=== PATIENT | female | born 1970 | race African-American/Black ===

== ENCOUNTER 2017-07-12 12:42 | Emergency (ER) | payer BC ==
[~2017-07-12] VITALS: Ht 170.2 cm; Wt 65.9 kg
[~2017-07-12 12:42] MED LIST: BACL10TA PO; MMW SS; PENI500T PO; PRED20 PO; TYLE3 PO; Z.0.NO CURRENT MEDS
[2017-07-12 12:43] VITALS: BP 182/92; PULSE 80; RESP 18; TEMP 98.5; O2SAT 100
--- NOTE | 2017-07-12 14:15 | RADRPT ---
EXAM DATE/TIME: 07/12/2017 13:36 [facility] COMPARISON: No previous studies available for comparison. INDICATIONS : Right arm pain. MEDICAL HISTORY : Right arm pain. SURGICAL HISTORY : Tonsillectomy. section. ENCOUNTER: Initial ACUITY: 1 day PAIN SCORE: 5/10 LOCATION: Right arm. FINDINGS: There is spontaneous flow documented in the brachial, basilic, cephalic, axillary, and subclavian vei ns. The vessels are compressible and augmentation response is documented. No filling defects are se en. The flow is phasic with respiration. Direction of flow in the jugular vein is caudal. CONCLUSION: No evidence of deep venous thrombosis within the right upper extremity. Tenzin Wiggins MD on July 12, 2017 at 14:12 Board Certified Radiologist. This report was verified electronically.
--- NOTE | 2017-07-12 14:24 | PD ---
Physical Exam Date Seen by Provider: Jul 12, 2017 Narrative Patient presents complaining with pain and numbness in her right lower arm Data Data Last Documented VS Vital Signs Date Time Temp Pulse Resp B/P (MAP) Pulse Ox O2 Delivery O2 Flow Rate FiO2 07/12/17 12:43 98.5 80 18 182/92 (122) 100 Room Air Orders Orders Us Arm Venous Doppler (07/12/17 13:16) MDM Supervised Visit with KENDY: Yes Narrative Course I, Dr. Valdez, have reviewed the advance practice practitioner's documentation and am in agreement, met with the patient face to face, made the diagnosis, and the medical decision making was done by me. *My assessment and Findings: Patient is awake and alert and in no acute distress. She has normal capillary refill and sensation in her right forearm and hand. Please see Taco Le PA-C's note for results of laboratory and radiographic evaluation, ED course, final diagnosis and disposition Scripts No Active Prescriptions or Reported Meds Aurora Valdez MD Jul 12, 2017 14:24
--- NOTE | 2017-07-12 14:35 | PD ---
HPI Chief Complaint: Numbness/Tingling Time Seen by Provider: 13:07 Travel History International Travel<30 days: No Contact w/Intl Traveler<30days: No Traveled to known affect area: No History of Present Illness HPI 46-year-old Afro-[place] female presents the emergency department with sudden onset right sided forearm and lateral hand numbness and tingling and pain upon awakening this morning. 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 Patient denies previous history of this in the past. Patient states the pain is localized to the proximal dorsal forearm. It is improved with warmth. Patient denies weakness. She denies neck pain or other symptoms proximally to the elbow. Patient denies any other symptoms. She is allergic to ibuprofen and Naprosyn. [facility] Past Medical History Medical History: Denies Significant Hx ?: Not : 1 Para: 1 Past Surgical History Section: Yes Tonsillectomy: Yes Social History Alcohol Use: Yes (OCCASIONAL) Tobacco Use: Yes Substance Use: No Allergies-Medications (Allergen,Severity, Reaction): Coded Allergies: ibuprofen (Unverified Allergy, Mild, HIVES, 02/21/17) naproxen (Verified Allergy, Unknown, 07/12/17) Reported Meds & Prescriptions Reported Meds & Active Scripts Active No Active Prescriptions or Reported Medications Review of Systems Except as stated in HPI: all other systems reviewed are Neg General / Constitutional: No: Fever Eyes: No: Visual changes HENT: No: Headaches Cardiovascular: No: Chest Pain or Discomfort Respiratory: No: Shortness of Breath Gastrointestinal: No: Abdominal Pain Genitourinary: No: Dysuria Musculoskeletal: Positive: Pain Skin: No Rash Neurologic: Positive: Paresthesia, No: Weakness Psychiatric: No: Depression Endocrine: No: Polydipsia Hematologic/Lymphatic: No: Easy Bruising Physical Exam Narrative GENERAL: Patient appears in no acute distress. SKIN: Warm and dry. Normal color. Normal turgor. No rash. HEAD: Atraumatic. Normocephalic. EYES: Pupils equal and round. No scleral icterus. No injection or drainage. ENT: No nasal bleeding or discharge. Mucous membranes pink and moist. NECK: Trachea midline. No bony tenderness or step-off. Range of motion is full and nontender. CARDIOVASCULAR: Regular rate and rhythm. RESPIRATORY: No accessory muscle use. Clear to auscultation. Breath sounds equal bilaterally. MUSCULOSKELETAL: Extremities without clubbing, cyanosis, or edema. No obvious deformities. Patient is tenderness along the dorsal proximal forearm without swelling. She also has positive Tinel's at the ulnar notch of the elbow. She has no Tinel's at the wrist. 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 Supination and pronation of the forearm does not worsen her symptoms. There is no perceptible swelling of the right arm. NEUROLOGICAL: Awake and alert. No obvious cranial nerve deficits. Motor grossly within normal limits. Five out of 5 muscle strength in the arms and legs. Normal speech. PSYCHIATRIC: Appropriate mood and affect; insight and judgment normal. Data Data Last Documented VS Vital Signs Date Time Temp Pulse Resp B/P (MAP) Pulse Ox O2 Delivery O2 Flow Rate FiO2 07/12/17 12:43 98.5 80 18 182/92 (122) 100 Room Air Orders Orders Us Arm Venous Doppler (07/12/17 13:16) [facility] Medical Decision Making Medical Screen Exam Complete: Yes Emergency Medical Condition: Yes Differential Diagnosis Ulnar neuritis. Tendinitis. Possible DVT. Narrative Course Ultrasound of the right arm is ordered. Ultrasound shows no evidence of DVT. Patient will be treated with prednisone 20 mg daily for the next 5 days. Patient can take Tylenol as well as needed for pain. Recommend heat followed by ice and follow up if symptoms do not improve as needed. Diagnosis Primary Impression: Neuritis of right ulnar nerve Referrals: Primary Care Physician Patient Instructions: Cubital Tunnel Syndrome (ED), General Instructions Additional Instructions: Ultrasound shows no evidence of DVT. Patient will be treated with prednisone 20 mg daily for the next 5 days. Patient can take Tylenol as well as needed for pain. Recommend heat followed by ice and follow up if symptoms do not improve as needed. Med/Other Pt SpecificInfo: Prescription(s) given Scripts No Active Prescriptions or Reported Meds Disposition: 01 DISCHARGE HOME Condition: Stable Marck Le Jul 12, 2017 14:35
[2017-07-12] MEDS ORDERED: MAPA500T13 PO (14:37)
[2017-07-12] MEDS ORDERED: PRED20 PO (14:37)
[2017-07-12] MEDS ORDERED: DEXA4TAB PO (15:15)
== END 2017-07-12 15:21 | disposition home or self-care (01) ==
LOC: NEPD 12:42
DX: G56.21 Lesion of ulnar nerve, right upper limb (principal); Z72.0 Tobacco use
CPT/HCPCS: 93971; 99284

== ENCOUNTER 2017-10-01 07:17 | Inpatient (IN) | payer BC ==
[~2017-10-01] VITALS: Ht 170.2 cm; Wt 66.0 kg
[2017-10-01] VITALS (8 sets, daily range): BP systolic 127–166; BP diastolic 67–91; PULSE 58–98; RESP 16–18; TEMP 97.8–98.2; O2SAT 98–100
[~2017-10-01 07:17] MED LIST changes: -BACL10TA PO; +DEXA4TAB PO; +MAPA500T13 PO; -MMW SS; -PENI500T PO; -PRED20 PO; -TYLE3 PO; -Z.0.NO CURRENT MEDS
[2017-10-01] MEDS ORDERED: IOHEXOL 350 MG/ML 10 ML VIAL (for RAD DIAG) IVCONTRAST ONE (07:18)
[2017-10-01] MEDS ORDERED: SODIUM CHLOR 0.9% 1000 ML INJ 1,000 ML IV ONE (07:40)
--- NOTE | 2017-10-01 07:48 | PD ---
HPI Chief Complaint: Numbness/Tingling Time Seen by Provider: 07:40 Travel History International Travel<30 days: No Contact w/Intl Traveler<30days: No Traveled to known affect area: No History of Present Illness HPI 47-year-old female patient presents to the ER today, states that she was watching TV after getting back from the store at 6:30 AM when she felt her right arm go numb, felt like she could use her right arm at all, felt was very weak. She states that the symptoms are now subsiding but she still has right arm weakness. She denies any headaches, trouble walking, trouble talking, or any other symptoms. She denies any vision changes, chest pains, shortness of breath. Stroke alert was called. Case was discussed with neurologist Dr. Peguero , and CAT scans were ordered. Modifying Factors: None Associated Signs & Symptoms: Right arm weakness and numbness, stroke alert Risk Factors: None PFSH Past Medical History ?: Not : 1 Para: 1 Past Surgical History Section: Yes Tonsillectomy: Yes Social History Alcohol Use: Yes (OCCASIONAL) Tobacco Use: Yes Substance Use: No Allergies-Medications (Allergen,Severity, Reaction): Coded Allergies: ibuprofen (Verified Allergy, Intermediate, HIVES, 10/01/17) naproxen (Verified Allergy, Unknown, HIVES, 10/01/17) Reported Meds & Prescriptions Reported Meds & Active Scripts Active Review of Systems Except as stated in HPI: all other systems reviewed are Neg Physical Exam Narrative GENERAL: Well-developed middle-aged -[place] female patient currently and mild distress. Awake and oriented 3. SKIN: Focused skin assessment warm/dry. HEAD: Atraumatic. Normocephalic. EYES: Pupils equal and round. No scleral icterus. No injection or drainage. ENT: No nasal bleeding or discharge. Mucous membranes pink and moist. NECK: Trachea midline. No JVD. Supple. CARDIOVASCULAR: Regular rate and rhythm. No murmur appreciated. RESPIRATORY: No accessory muscle use. Clear to auscultation. Breath sounds equal bilaterally. GASTROINTESTINAL: Abdomen soft, non-tender, nondistended. Hepatic and splenic margins not palpable. MUSCULOSKELETAL: No obvious deformities. No clubbing. No cyanosis. No edema. NEUROLOGICAL: Awake and alert. No obvious cranial nerve deficits. Right arm numbness, paresthesias, and weakness, 4/6. Normal speech. Right pronator drift. PSYCHIATRIC: Appropriate mood and affect; insight and judgment normal. Data Data Last Documented VS Vital Signs Date Time Temp Pulse Resp B/P (MAP) Pulse Ox O2 Delivery O2 Flow Rate FiO2 10/01/17 08:18 98 Nasal Cannula 2.00 10/01/17 07:36 99 17 10/01/17 07:35 97.8 127/79 (95) Orders Orders Diet Npo (10/01/17 Breakfast) Activity Bed Rest (10/01/17 ) Electrocardiogram (10/01/17 ) I-Stat Profile (10/01/17 07:40) Prothrombin Time / Inr (Pt) (10/01/17 07:40) Act Partial Throm Time (Ptt) (10/01/17 07:40) Complete Blood Count With Diff (10/01/17 07:40) Fibrinogen (10/01/17 07:40) Creatine Kinase (Cpk) (10/01/17 07:40) Troponin I (10/01/17 07:40) Ua Includes Microscopic (10/01/17 07:40) Drug Screen, Random Urine (10/01/17 07:40) Type And Screen (10/01/17 07:40) Ct Brain W/O Iv Contrast(Rout) (10/01/17 ) Chest, Single Ap (10/01/17 ) Cta Brain W Iv Contrast W 3d (10/01/17 07:40) Cta Neck W Iv Contrast W 3d (10/01/17 07:40) Beta Hcg (Quant/Titer) (10/01/17 07:40) Consult Neurology (10/01/17 ) Blood Glucose (10/01/17 07:40) Ecg Monitoring (10/01/17 07:40) Neuro Checks Q2HX12,Q4H (10/01/17 07:40) Nursing Bedside Swallow Assess .ONCE (10/01/17 07:40) Iv Access Insert/Monitor (10/01/17 07:40) NPO (10/01/17 07:40) Oximetry (10/01/17 07:40) Resp Oxygen Nc Stroke (10/01/17 ) Sodium Chlor 0.9% 1000 Ml Inj (Ns 1000 M (10/01/17 07:40) Cath For Specimen (10/01/17 07:40) (Hub Use Only)Inp Phy Cons/Ref (10/01/17 ) Aspirin (Aspirin) (10/01/17 08:45) Iohexol 350 Inj (Omnipaque 350 Inj) (10/01/17 07:18) Admit Order (Ed Use Only) (10/01/17 08:55) Labs Laboratory Tests Test 10/01/17 07:50 White Blood Count 8.6 TH/MM3 Red Blood Count 4.68 MIL/MM3 Hemoglobin 10.6 GM/DL Bedside Hemoglobin 12.6 G/DL Hematocrit 34.2 % Bedside Hematocrit 37.0 % Mean Corpuscular Volume 73.1 FL Mean Corpuscular Hemoglobin 22.6 PG Mean Corpuscular Hemoglobin Concent 31.0 % Red Cell Distribution Width 18.2 % Platelet Count 436 TH/MM3 Mean Platelet Volume 8.1 FL Neutrophils (%) (Auto) 52.1 % Lymphocytes (%) (Auto) 33.1 % Monocytes (%) (Auto) 13.0 % Eosinophils (%) (Auto) 1.0 % Basophils (%) (Auto) 0.8 % Neutrophils # (Auto) 4.5 TH/MM3 Lymphocytes # (Auto) 2.8 TH/MM3 Monocytes # (Auto) 1.1 TH/MM3 Eosinophils # (Auto) 0.1 TH/MM3 Basophils # (Auto) 0.1 TH/MM3 CBC Comment DIFF FINAL Differential Comment Prothrombin Time 9.3 SEC Prothromb Time International Ratio 0.9 RATIO Activated Partial Thromboplast Time 19.4 SEC Fibrinogen 403 mg/dL Bedside Sodium 138 MMOL/L Bedside Potassium 3.9 MMOL/L Bedside Chloride 106 MMOL/L Bedside Blood Urea Nitrogen 8 MG/DL Bedside Creatinine 0.8 MG/DL Bedside Glucose 102 MG/DL Total Creatine Kinase 108 U/L Troponin I LESS THAN 0.02 NG/ML Human Chorionic Gonadotropin, Quant LESS THAN 1 MIU/ML MDM Medical Screen Exam Complete: Yes Emergency Medical Condition: Yes Medical Record Reviewed: Yes EKG Prior to Arrival: Yes Differential Diagnosis Acute CVA versus radiculopathy versus neuropathy versus ICH Narrative Course CT and CTA was unremarkable. Patient came back from CT and most the symptoms are resolving. Case had been discussed with neurologist, Dr. Peguero, who agrees that at this point risk would be higher of giving TPA versus symptoms and agrees with giving aspirin. Planning to admit for further observation. Case was discussed with Dr. Alexis for admission. Stroke Alert NIHSS NIH Stroke Scale Result: 1 NIHSS Time Completed: 07:40 Thrombolytic Contraindications Contraindications Comment: TPA deferred secondary to rapidly improving symptoms. Diagnosis Diagnosis: Primary Impression: CVA (cerebral vascular accident) Admitting Physician Requests: Admit SoonMulu marshall MD Oct 01, 2017 07:48
[2017-10-01 08:05] LABS: AUTOMATED NEUTROPHIL # 4.5 TH/MM3 (1.8-7.7); BASOPHIL # 0.1 TH/MM3 (0-0.2); BASOPHIL % 0.8 % (0.0-2.0); EOSINOPHIL # 0.1 TH/MM3 (0-0.4); HEMATOCRIT 34.2 % (35.0-46.0); HEMOGLOBIN 10.6 GM/DL (11.6-15.3); LYMPH % 33.1 % (9.0-44.0); LYMPHOCYTE # 2.8 TH/MM3 (1.0-4.8); MEAN CELL VOLUME 73.1 FL (80.0-100.0); MEAN CORPUSCULAR HEMOGLOBIN 22.6 PG (27.0-34.0); MEAN PLATELET VOLUME 8.1 FL (7.0-11.0); MONOCYTE # 1.1 TH/MM3 (0-0.9); NEUT % 52.1 % (16.0-70.0); PLATELET COUNT 436 TH/MM3 (150-450); RED BLOOD COUNT 4.68 MIL/MM3 (4.00-5.30); RED CELL DISTRIBUTION WIDTH 18.2 % (11.6-17.2); WHITE BLOOD COUNT 8.6 TH/MM3 (4.0-11.0)
--- NOTE | 2017-10-01 08:09 | RADRPT ---
EXAM DATE/TIME: 10/01/2017 07:57 [facility] COMPARISON: No previous studies available for comparison. INDICATIONS : Stroke alert, Right sided weakness. RADIATION DOSE: 56.35 CTDIvol (mGy) This report was called by Dr. Wiggins to Dr. Hudson at ok 8: 08 AM on 10/01/17. MEDICAL HISTORY : Non-responsive. SURGICAL HISTORY : Non-responsive. ENCOUNTER: Initial ACUITY: 1 day PAIN SCALE: Non-responsive LOCATION: Bilateral head TECHNIQUE: Multiple contiguous axial images were obtained of the head. Using automated exposure control and adj ustment of the mA and/or kV according to patient size, radiation dose was kept as low as reasonably a chievable to obtain optimal diagnostic quality images. DICOM format image data is available electro nically for review and comparison. FINDINGS: CEREBRUM: The ventricles are normal for age. No evidence of midline shift, mass lesion, hemorrhage or acute in farction. No extra-axial fluid collections are seen. POSTERIOR FOSSA: The cerebellum and brainstem are intact. The 4th ventricle is midline. The cerebellopontine angle i s unremarkable. EXTRACRANIAL: The visualized portion of the orbits is intact. SKULL: The calvaria is intact. No evidence of skull fracture. CONCLUSION: No acute disease. Tenzin Wiggins MD on October 01, 2017 at 8:03 Board Certified Radiologist. This report was verified electronically.
[2017-10-01 08:19] LABS: INTERNATIONAL NORMALIZED RATIO 0.9 RATIO; PROTHROMBIN TIME - PATIENT 9.3 SEC (9.8-11.6)
[2017-10-01 08:23] LABS: TROPONIN I LESS THAN 0.02 NG/ML (0.02-0.05)
--- NOTE | 2017-10-01 08:39 | RADRPT ---
EXAM DATE/TIME: 10/01/2017 08:14 [facility] COMPARISON: CT BRAIN W/O CONTRAST, October 01, 2017, 7:57. INDICATIONS : Stroke alert, altered mental status. IV CONTRAST: 85 cc Omnipaque 350 (iohexol) IV ; Cumulative dose for multiple exams. RADIATION DOSE: 9.96 CTDIvol (mGy) ; Combined studies MEDICAL HISTORY : Non-responsive. SURGICAL HISTORY : Non-responsive. ENCOUNTER: Initial ACUITY: 1 day PAIN SCALE: Non-responsive LOCATION: Bilateral head TECHNIQUE: Volumetric scanning was performed using a multi-row detector CT scanner. The data was post processed with a variety of visualization algorithms including full volume maximum intensity projection, multi -planar sliding thin slab reformation, curved planar reformation, and surface rendering techniques. Using automated exposure control and adjustment of the mA and/or kV according to patient size, radiat ion dose was kept as low as reasonably achievable to obtain optimal diagnostic quality images. DICO M format image data is available electronically for review and comparison. FINDINGS: There is excellent visualization of the major intracranial arteries out to the second-order branch ve ssels. There is no evidence for aneurysm, vessel truncation or stenosis, and no evidence for vascula r malformation. CONCLUSION: No acute disease. Tenzin Wiggins MD on October 01, 2017 at 8:34 Board Certified Radiologist. This report was verified electronically.
--- NOTE | 2017-10-01 08:40 | RADRPT ---
EXAM DATE/TIME: 10/01/2017 09:28 [facility] COMPARISON: No previous studies available for comparison. INDICATIONS : Stroke Alert MEDICAL HISTORY : None. SURGICAL HISTORY : None. ENCOUNTER: Initial ACUITY: 1 day PAIN SCORE: 0/10 LOCATION: chest FINDINGS: A single view of the chest demonstrates the lungs to be symmetrically aerated without evidence of mas s, infiltrate or effusion. The cardiomediastinal contours are unremarkable. Osseous structures are intact. CONCLUSION: No acute disease. Tenzin Wiggins MD on October 01, 2017 at 8:37 Board Certified Radiologist. This report was verified electronically.
[2017-10-01] MEDS ORDERED: ASPIRIN 325 MG TAB PO ONE (08:45)
--- NOTE | 2017-10-01 08:47 | RADRPT ---
EXAM DATE/TIME: 10/01/2017 08:14 [facility] COMPARISON: No previous studies available for comparison. INDICATIONS : Stroke alert, right sided weakness. IV CONTRAST: 85 cc Omnipaque 350 (iohexol) IV ; Cumulative dose for multiple exams. RADIATION DOSE: 9.96 CTDIvol (mGy) ; Combined studies MEDICAL HISTORY : Non-responsive. SURGICAL HISTORY : Non-responsive. ENCOUNTER: Initial ACUITY: 1 day PAIN SCALE: Non-responsive LOCATION: Bilateral neck Elevated flow velocities and ICA/CCA ratios have been found to correlate with increased degrees of vessel stenosis, calculated as percentage of diameter relative to a normal segment of distal ICA/CCA. TECHNIQUE: Volumetric scanning was performed using a multirow detector CT scanner. The data was post processed with a variety of visualization algorithms including full-volume maximum intensity projection, multip lanar sliding thin-slab reformation, curved-planar reformation, and surface-rendering techniques. Us ing automated exposure control and adjustment of the mA and/or kV according to patient size, radiatio n dose was kept as low as reasonably achievable to obtain optimal diagnostic quality images. DICOM f ormat image data is available electronically for review and comparison. FINDINGS: AORTIC ARCH: There is a three-vessel origin of the great vessels from the aorta. No evidence of ostial narrowing. RIGHT CAROTID: The common carotid artery is intact. The carotid bulb has a normal configuration without ulceration o r narrowing. The internal carotid artery lumen is smooth without stenosis. The external carotid mela ry is intact. LEFT CAROTID: The common carotid artery is intact. The carotid bulb has a normal configuration without ulceration or narrowing. The internal carotid artery lumen is smooth without stenosis. The external carotid ar radha is intact. VERTEBRALS: The vertebral arteries have a symmetric diameter. No stenotic lesions are seen. CONCLUSION: No acute disease. Tenzin Wiggins MD on October 01, 2017 at 8:43 Board Certified Radiologist. This report was verified electronically.
[2017-10-01] MEDS ORDERED: SODIUM CHLORIDE 0.9% FLUSH 10 ML FLUSH IV FLUSH PRN (09:00)
[2017-10-01] MEDS ORDERED: DEXTROSE 50% IN WATER 50 ML VIAL(D50) IV PUSH PRN (09:00)
[2017-10-01] MEDS: SODIUM CHLORIDE 0.9% FLUSH 10 ML FLUSH IV FLUSH SCH ×2 (09:00→21:22)
[2017-10-01] MEDS ORDERED: ASPIRIN 81 MG CHEW TAB PO SCH (09:00)
[2017-10-01] MEDS ORDERED: GLUCAGON 1 MG/ML VIAL OTHER PRN (09:00)
[2017-10-01] MEDS ORDERED: LORazepam 2 MG/ML VIAL IV PUSH ONE (09:30)
[2017-10-01 09:49] LABS: BILIRUBIN, URINE NEG (NEG); BLOOD, URINE NEG (NEG); GLUCOSE,URINE NEG (NEG); KETONE, URINE NEG (NEG); NITRITE,URINE NEG (NEG); PH, URINE 7.5 (5.0-8.5); SQUAMOUS EPITHELIAL CELL URINE 1 /hpf (0-5); URINE COLOR LIGHT-YELLOW (YELLW/STRAW); URINE LEUKOCYTE ESTERASE NEG (NEG)
--- NOTE | 2017-10-01 10:05 | RADRPT ---
EXAM DATE/TIME: 10/01/2017 09:31 [facility] COMPARISON: No previous studies available for comparison. INDICATIONS : Right upper extremity weakness. MEDICAL HISTORY : None. SURGICAL HISTORY : section. ENCOUNTER: Initial ACUITY: 1 day PAIN SCORE: 0/10 LOCATION: cranial Please note a normal MRA of the brain does not entirely exclude the possibility of a small aneurysm, nor the possibility of distal intracranial vessel disease. TECHNIQUE: 3D time of flight MRA was performed. Source images, multiplanar STS MIP, and 3D volume MIP reconstru ctions were reviewed. FINDINGS: There is excellent visualization of the major intracranial arteries out to the second-order branch ve ssels. There is no evidence for aneurysm, vessel truncation or stenosis, and no evidence for vascula r malformation. CONCLUSION: No acute disease. Tenzin Wiggins MD on October 01, 2017 at 10:01 Board Certified Radiologist. This report was verified electronically.
--- NOTE | 2017-10-01 10:30 | RADRPT ---
EXAM DATE/TIME: 10/01/2017 09:31 [facility] COMPARISON: CTA BRAIN W 3D RECON, October 01, 2017, 8:14. INDICATIONS : Right upper extremity weakness. MEDICAL HISTORY : None. SURGICAL HISTORY : section. ENCOUNTER: Initial ACUITY: 1 day PAIN SCORE: 0/10 LOCATION: cranial TECHNIQUE: Multiplanar, multisequence MRI of the brain was performed without contrast. FINDINGS: There are small focal hyperintensities within the left high parietal cortex and to a lesser extent th e right high parietal cortex on the diffusion weighted images suggesting tiny acute infarcts. The mahin tricles, sulci and cisterns are normal in size shape and position for the patient's age. No acute hem orrhage, midline shift or extra-axial fluid collections are noted. The midline structures are normal. CONCLUSION: 1. Small focal hyperintensities within the left high parietal cortex and to a lesser extent the right high parietal cortex on the diffusion-weighted images suggesting tiny acute infarcts. 2. No acute hemorrhage, midline shift or extra axial fluid collections. Tenzin Wiggins MD on October 01, 2017 at 10:24 Board Certified Radiologist. This report was verified electronically.
--- NOTE | 2017-10-01 11:15 | MB ---
cc: Lenny Peguero MD DATE: 10/01/2017 HISTORY OF PRESENT ILLNESS: This is a 47-year-old seen as a stroke alert today. She developed right arm symptoms about 6:30. I spoke to the ED physician on multiple occasions. She improved quickly and her studies were essentially negative and subsequently we ordered an MRI brain, which I just reviewed, and the study shows small areas of left parietal diffusion abnormality with another small area on the right as well. She has no medical history, no medications on a regular basis. She is a smoker and admits drinking alcohol. She was fine this morning when she had the symptoms. NEUROLOGIC EXAMINATION: Showing very minimal right upper extremity weakness with some pronation. There is some flattening on the right nasolabial fold, probably of no significance. Speech and language are normal. Good strength in the lower extremities. Reflexes 1-2+ throughout and plantar response is flexor. ASSESSMENT: Small areas of ischemia, left more than right parietal suggesting embolic phenomena. NIHSS is 1. Initially, we did not think she was a candidate for the TPA, but considering the MRI findings, I thought this was still a reasonable alternative since we were within the 4 and 1/2 hour span for TPA. The patient was offered and she promptly declined it as she feels she is fully or nearly fully recovered and she does not want to take any risks. We will give her IV fluids, maintain head of bed flat for the next 6 hours at least. We will order echocardiogram and also a hypercoagulable profile. Checking lipids. Aspirin was given and we will continue 325 daily. EKG was sinus rhythm. I should mention CT angio head and neck and MRA head were all normal. Thank you for asking us to assist in her care. I will follow her with you. Lenny Peguero MD OFC/TL , 10:49 AM , 11:14 AM
[2017-10-01] MEDS: INSULIN ASPART SUPPLEMENTAL SCALE SQ SCH ×3 (12:00→21:00)
[2017-10-01 14:01] LABS: ALBUMIN 3.2 GM/DL (3.4-5.0); ALT (GPT) 22 U/L (10-53); AST (GOT) 24 U/L (15-37); DIRECT BILIRUBIN ADULT LESS THAN 0.1 MG/DL (0.0-0.2)
[2017-10-01 14:02] LABS: ALKALINE PHOSPHATASE 89 U/L (45-117); TOTAL BILIRUBIN ADULT 0.1 MG/DL (0.2-1.0); TOTAL PROTEIN 7.9 GM/DL (6.4-8.2)
--- NOTE | 2017-10-01 16:40 | HHI.HP ---
[facility] No Primary Care Physician Admission Diagnosis Stroke alert Diagnoses: Chief Complaint: right arm numbness/weakness Travel History International Travel<30 Days: No Contact w/Intl Traveler <30 Da: No Traveled to Known Affected Are: No History of Present Illness Written by Alyson Amaya, acting as scribe for Dr. Alexis on 10/01/17 at 16:39. 47-year-old female with history of tobacco use, otherwise no significant past medical history, presents with acute onset of right arm numbness/weakness at 6: 30 AM this morning 10/01/17. The patient reports she has been in her usual state of health, denies any recent fever/chills, lightheadedness, dizziness, headache, chest pain, palpitations, shortness of breath, or abdominal complaints. She went to the store around 6 AM this morning for a pack of cigarettes, returned home, smoked a cigarette, and then started to notice significant numbness and weakness of the right arm. She states her arm then went completely limp. She immediately prompted a family member to take her to the hospital. Denies any visual changes, facial droop, slurred speech, lower extremity numbness/weakness, or any other complaints. Upon arrival to the ED, a stroke alert was called. Head CT was negative for stroke. Neurology was consulted and offered TPA, however patient declined because her symptoms were improving. The patient is now seen around 4 PM; she reports some soreness around her right upper arm otherwise no further numbness or weakness. Denies any other medical complaints at this time. No family history of stroke. She does not follow with a PCP. She does not check her blood pressure. She does not take any medications, including no aspirin. She did have an episode of right hand paresthesias in , presented to the ER, but was diagnosed with neuritis of right ulnar nerve, discharged home, and symptoms resolved. Review of Systems Except as stated in HPI: all other systems reviewed are Neg Past Family Social History Past Medical History No significant past medical history Past Surgical History 30years ago Reported Medications Denies taking any medications on a regular basis. Allergies: Coded Allergies: ibuprofen (Verified Allergy, Intermediate, HIVES, 10/01/17) naproxen (Verified Allergy, Unknown, HIVES, 10/01/17) Active Ordered Medications Current Medications Medications (Trade) Dose Ordered Sig/Weston Route Start Time Stop Time Status Last Admin Sodium Chloride 1,000 ml @ 70 mls/hr [id number] ONCE IV 10/01/17 07:40 10/01/17 21:57 10/01/17 08:06 (NS Flush) 2 ml BID IV FLUSH 10/01/17 09:00 (NS Flush) 2 ml UNSCH PRN IV FLUSH 10/01/17 09:00 (NovoLOG SUPPLEMENTAL SCALE) 1 ACHS SQ 10/01/17 12:00 (D50w (Vial) Inj) 50 ml UNSCH PRN IV PUSH 10/01/17 09:00 (Glucagon Inj) 1 mg UNSCH PRN OTHER 10/01/17 09:00 (Lipitor) 10 mg HS PO 10/01/17 21:00 (Ecotrin Ec) 325 mg DAILY PO 10/02/17 09:00 Family History Father with CAD s/p stents Mother with no significant history Both sides of the family with diabetes Social History Smokes tobacco, 1PPD [id number] Occasional social alcohol use Denies any illicit drug use Physical Exam Vital Signs Vital Signs Date Time Temp Pulse Resp B/P (MAP) Pulse Ox O2 Delivery O2 Flow Rate FiO2 10/01/17 15:03 98.2 64 18 149/90 (109) 98 10/01/17 15:01 10/01/17 14:11 72 17 158/91 (113) 100 Room Air 10/01/17 11:30 76 17 166/88 (114) 99 Room Air 10/01/17 08:18 98 Nasal Cannula 2.00 10/01/17 08:18 98 Nasal Cannula 2.00 10/01/17 07:45 98 2.00 10/01/17 07:45 98 Nasal Cannula 2.00 10/01/17 07:36 99 17 100 Room Air 10/01/17 07:35 97.8 98 16 127/79 (95) 100 Physical Exam GENERAL: Well-nourished, well-developed pleasant middle aged female patient in [facility]. SKIN: Warm and dry. No rash. HEAD: Normocephalic. Atraumatic. EYES: Pupils equal and round. No scleral icterus. No injection or drainage. ENT: No nasal bleeding or discharge. Mucous membranes pink and moist. NECK: Supple. Trachea midline. CARDIOVASCULAR: Regular rate and rhythm. S1, S2 noted. No murmur appreciated. RESPIRATORY: No accessory muscle use. Clear to auscultation. Breath sounds equal bilaterally. GASTROINTESTINAL: Abdomen soft, non-tender, nondistended. Normoactive bowel sounds x4. MUSCULOSKELETAL: No obvious deformities. Extremities without clubbing, cyanosis , or edema. NEUROLOGICAL: Awake and alert. No obvious cranial nerve deficits. 4.5/5 strength of RUE, 5/5 strength of LUE, 5/5 strength in BLE. Normal speech. Bilateral upper and lower extremity sensation equal and intact. No facial droop , lid lag, or tongue deviation. PSYCHIATRIC: Appropriate mood and affect; insight and judgment normal. Laboratory Laboratory Tests Test 10/01/17 07:50 10/01/17 08:00 10/01/17 09:00 White Blood Count 8.6 Red Blood Count 4.68 Hemoglobin 10.6 Bedside Hemoglobin 12.6 Hematocrit 34.2 Bedside Hematocrit 37.0 Mean Corpuscular Volume 73.1 Mean Corpuscular Hemoglobin 22.6 Mean Corpuscular Hemoglobin Concent 31.0 Red Cell Distribution Width 18.2 Platelet Count 436 Mean Platelet Volume 8.1 Neutrophils (%) (Auto) 52.1 Lymphocytes (%) (Auto) 33.1 Monocytes (%) (Auto) 13.0 Eosinophils (%) (Auto) 1.0 Basophils (%) (Auto) 0.8 Neutrophils # (Auto) 4.5 Lymphocytes # (Auto) 2.8 Monocytes # (Auto) 1.1 Eosinophils # (Auto) 0.1 Basophils # (Auto) 0.1 CBC Comment DIFF FINAL Differential Comment Prothrombin Time 9.3 Prothromb Time International Ratio 0.9 Activated Partial Thromboplast Time 19.4 Fibrinogen 403 Bedside Sodium 138 Bedside Potassium 3.9 Bedside Chloride 106 Bedside Blood Urea Nitrogen 8 Bedside Creatinine 0.8 Bedside Glucose 102 Total Bilirubin 0.1 Direct Bilirubin LESS THAN 0.1 Indirect Bilirubin 0.0 Aspartate Amino Transf (AST/SGOT) 24 Alanine Aminotransferase (ALT/SGPT) 22 Alkaline Phosphatase 89 Total Creatine Kinase 108 Troponin I LESS THAN 0.02 Total Protein 7.9 Albumin 3.2 Human Chorionic Gonadotropin, Quant LESS THAN 1 Urine Color LIGHT-YELLOW Urine Turbidity CLEAR Urine pH 7.5 Urine Specific Bonita 1.035 Urine Protein NEG Urine Glucose (UA) NEG Urine Ketones NEG Urine Occult Blood NEG Urine Nitrite NEG Urine Bilirubin NEG Urine Urobilinogen LESS THAN 2.0 Urine Leukocyte Esterase NEG Urine RBC LESS THAN 1 Urine WBC LESS THAN 1 Urine Squamous Epithelial Cells 1 Urine Opiates Screen NEG Urine Barbiturates Screen NEG Urine Amphetamines Screen NEG Urine Benzodiazepines Screen NEG Urine Cocaine Screen NEG Urine Cannabinoids Screen POS Result Diagram: 10/01/17 0750 Imaging 10/01/[address] unremarkable 10/01/17 head/neck CTA unremarkable 10/01/17 chest x-ray unremarkable 10/01/17 head MRA unremarkable 10/01/17 brain MRI shows small focal hyperintensities within the left high parietal cortex and to a lesser extent the right high parietal cortex on the diffusion-weighted images suggesting tiny acute infarcts; No acute hemorrhage, midline shift or extra axial fluid collections Caprini VTE Risk Assessment Caprini VTE Risk Assessment: Mod/High Risk (score >= 2) Caprini Risk Assessment Model Point Value = 1 Point Value = 2 Point Value = 3 Point Value = 5 Age 41-60 Minor surgery BMI > 25 kg/m2 Swollen legs Varicose veins or History of unexplained or recurrent spontaneous Oral contraceptives or hormone replacement Sepsis (< 1 month) Serious lung disease, including pneumonia (< 1 month) Abnormal pulmonary function Acute myocardial infarction Congestive heart failure (< 1 month) History of inflammatory bowel disease Medical patient at bed rest Age 61-74 Arthroscopic surgery Major open surgery (> 45 min) Laparoscopic surgery (> 45 min) Malignancy Confined to bed (> 72 hours) Immobilizing plaster cast Central venous access Age >= 75 History of VTE Family history of VTE Factor V Leiden Prothrombin [id number] Lupus anticoagulant Anticardiolipin antibodies Elevated serum homocysteine Heparin-induced thrombocytopenia Other congenital or acquired thrombophilia Stroke (< 1 month) Elective arthroplasty Hip, pelvis, or leg fracture Acute spinal cord injury (< 1 month) Prophylaxis Regimen Total Risk Factor Score Risk Level Prophylaxis Regimen 0-1 Low Early ambulation 2 Moderate Order ONE of the following: *Sequential Compression Device (SCD) *Heparin 5000 units SQ BID 3-4 Higher Order ONE of the following medications: *Heparin 5000 units SQ TID *Enoxaparin/Lovenox 40 mg SQ daily (WT < 150 kg, CrCl > 30 mL/min) *Enoxaparin/Lovenox 30 mg SQ daily (WT < 150 kg, CrCl > 10-29 mL/min) *Enoxaparin/Lovenox 30 mg SQ BID (WT < 150 kg, CrCl > 30 mL/min) AND/OR *Sequential Compression Device (SCD) 5 or more Highest Order ONE of the following medications: *Heparin 5000 units SQ TID (Preferred with Epidurals) *Enoxaparin/Lovenox 40 mg SQ daily (WT < 150 kg, CrCl > 30 mL/min) *Enoxaparin/Lovenox 30 mg SQ daily (WT < 150 kg, CrCl > 10-29 mL/min) *Enoxaparin/Lovenox 30 mg SQ BID (WT < 150 kg, CrCl > 30 mL/min) AND *Sequential Compression Device (SCD) Assessment and Plan Problem List: (1) CVA (cerebral vascular accident) ICD Code: I63.9 - Cerebral infarction, unspecified Status: Acute Assessment and Plan 47-year-old female with history of tobacco use, otherwise no significant past medical history, presents with acute onset of right arm numbness/weakness at 6: 30 AM this morning 10/01/17. Acute CVA: suspect embolic stroke. Presented with significant right arm numbness /weakness. Stroke alert called in ED, TPA offered however patient declined due to resolving symptoms and concern for side effects. -Head CT, Head/Neck CTA, Head MRA images reviewed and unremarkable -Brain MRI shows Small focal hyperintensities within the left high parietal cortex and to a lesser extent the right high parietal cortex on the diffusion- weighted images suggesting tiny acute infarcts -Started on full strength aspirin 325mg daily -Check echo and holter monitor -NIHSS, neuro checks, monitor on telemetry -Check lipid panel, HgbA1c -Start statin for now pending lipid profile results -S/p HOB flat -Allow permissive hypertension for now -Give IVF hydration -Consult PT/OT/ST -Consult stroke navigator -Consult neurology, seen by Dr. Peguero, appreciate recommendations Tobacco use: chronic, smokes 1PPD [id number] -counseled on cessation -avoid nicotine patch due to vasoconstriction DVT Prophylaxis: teds/SCDs This note was transcribed by regine Amaya. I, Dr. Madeline Alexis personally performed the history, physical exam, and medical decision making; and confirmed the accuracy of the information in the transcribed note. Authenticated by Dr. Madeline Alexis on 10/01/17 at 16:39. Code Status Full Code Discussed Condition With ER MD, Patient, Patient's cousin at bedside Physician Certification 2 Midnight Certification Type: Admission for Inpatient Services Order for Inpatient Services The services are ordered in accordance with Medicare regulations or non- Medicare payer requirements, as applicable. In the case of services not specified as inpatient-only, they are appropriately provided as inpatient services in accordance with the 2-midnight benchmark. Estimated LOS (days): 3 days is the estimated time the patient will need to remain in the hospital, assuming treatment plan goals are met and no additional complications. Post-Hospital Plan: Not yet determined Alyson Amaya PA-C Oct 01, 2017 16:40 Madeline Alexis MD Oct 01, 2017 18:19
[2017-10-01] MEDS ORDERED: ENALAPRILAT 1.25 MG/ML VIAL IV PUSH PRN (17:30)
[2017-10-01] MEDS ORDERED: ATORVASTATIN 10 MG TAB PO SCH (21:00)
[2017-10-02] VITALS (8 sets, daily range): BP systolic 128–150; BP diastolic 73–97; PULSE 66–75; RESP 16–18; TEMP 98.1–98.5; O2SAT 97–100
[2017-10-02] MEDS: SODIUM CHLORIDE 0.9% FLUSH 10 ML FLUSH IV FLUSH SCH (07:11)
[2017-10-02 07:12] LABS: CHOLESTEROL/ HDL RATIO 2.74 RATIO; HDL CHOLESTEROL 59.1 MG/DL (40.0-60.0)
[2017-10-02] MEDS: INSULIN ASPART SUPPLEMENTAL SCALE SQ SCH ×2 (07:16→11:21)
[2017-10-02] MEDS ORDERED: ASPIRIN EC 325 MG TABEC PO SCH (09:00)
--- NOTE | 2017-10-02 11:24 | HHI.PR ---
Subjective Remarks Follow up for acute stroke. She reports good improvements of her right arm. No CP, SOB, fever, chills. Objective Vitals Vital Signs Date Time Temp Pulse Resp B/P (MAP) Pulse Ox O2 Delivery O2 Flow Rate FiO2 10/02/17 09:44 68 10/02/17 07:45 98.1 75 16 133/75 (94) 97 10/02/17 04:00 98.1 68 18 150/97 (114) 100 10/02/17 00:00 98.5 71 18 141/73 (95) 99 10/01/17 20:00 97.8 67 18 138/67 (90) 99 10/01/17 17:08 58 10/01/17 15:03 98.2 64 18 149/90 (109) 98 10/01/17 15:01 10/01/17 14:11 72 17 158/91 (113) 100 Room Air 10/01/17 11:30 76 17 166/88 (114) 99 Room Air I/O 10/01/17 10/01/17 10/01/17 10/02/17 10/02/17 10/02/17 07:00 15:00 23:00 07:00 15:00 23:00 # Voids 2 Result Diagram: 10/01/17 0750 Imaging Last Impressions Neck CTA 10/01/17 0740 Signed Impressions: Service Date/Time: Sunday, October 01, 2017 08:14 - CONCLUSION: No acute disease. Tenzin Wiggins MD Head CTA 10/01/17 0740 Signed Impressions: Service Date/Time: Sunday, October 01, 2017 08:14 - CONCLUSION: No acute disease. Tenzin Wiggins MD Head Magnetic Resonance Angiography 10/01/17 0000 Signed Impressions: Service Date/Time: Sunday, October 01, 2017 09:31 - CONCLUSION: No acute disease. Tenzin Wiggins MD Head CT 10/01/17 0000 Signed Impressions: Service Date/Time: Sunday, October 01, 2017 07:57 - CONCLUSION: No acute disease. Tenzin Wiggins MD Chest X-Ray 10/01/17 0000 Signed Impressions: Service Date/Time: Sunday, October 01, 2017 09:28 - CONCLUSION: No acute disease. Tenzin Wiggins MD Brain MRI 10/01/17 0000 Signed Impressions: Service Date/Time: Sunday, October 01, 2017 09:31 - CONCLUSION: 1. Small focal hyperintensities within the left high parietal cortex and to a lesser extent the right high parietal cortex on the diffusion-weighted images suggesting tiny acute infarcts. 2. No acute hemorrhage, midline shift or extra axial fluid collections. Tenzin Wiggins MD Objective Remarks GENERAL: Alert, oriented x 3, NAD. SKIN: Warm and dry. HEAD: Normocephalic. EYES: No scleral icterus. No injection or drainage. NECK: Supple, trachea midline. No JVD or lymphadenopathy. CARDIOVASCULAR: Regular rate and rhythm without murmurs, gallops, or rubs. RESPIRATORY: Breath sounds equal bilaterally. No accessory muscle use. GASTROINTESTINAL: Abdomen soft, non-tender, nondistended. MUSCULOSKELETAL: No cyanosis, or edema. Right and left upper ext strength equal 5/5. BACK: Nontender without obvious deformity. No CVA tenderness. Procedures None. A/P Problem List: (1) CVA (cerebral vascular accident) ICD Code: I63.9 - Cerebral infarction, unspecified Status: Acute Assessment and Plan 47-year-old female with history of tobacco use, otherwise no significant past medical history, presents with acute onset of right arm numbness/weakness at 6: 30 AM 10/01/17. Acute CVA: suspect embolic stroke. Presented with significant right arm numbness /weakness. Stroke alert called in ED, TPA offered however patient declined due to resolving symptoms and concern for side effects. -Head CT, Head/Neck CTA, Head MRA images reviewed and unremarkable -Brain MRI shows Small focal hyperintensities within the left high parietal cortex and to a lesser extent the right high parietal cortex on the diffusion- weighted images suggesting tiny acute infarcts -Started on full strength aspirin 325mg daily -echo done, report pending and holter monitor was done for 21 hours. IF thromboembolic stroke remains a concern and holter reading is negative, outpatient Loop recorder should be considered. -Dr. Peguero recommended Aspirin and Plavix for 6 weeks and follow up with him in two weeks. - Will continue Lipitor as well. Tobacco use: chronic, smokes 1PPD [id number] -counseled on cessation, -avoid nicotine patch due to vasoconstriction DVT Prophylaxis: teds/SCDs Discharge patient to home Condition on discharge: Improved Regular Diet as tolerated Ad Rosalba activity Rx written: Aspirin 81mg Qday And plavix 75mg Qday. Lipitor 40mg Qday Follow-up with primary care physician in one week, Neurology appt in two weeks. Moira Samuel DO Oct 02, 2017 11:24
[2017-10-02] MEDS ORDERED: LIPI40TA PO (15:54)
[2017-10-02] MEDS ORDERED: ASPI325T33 PO (15:54)
--- NOTE | 2017-10-02 16:10 | HHI.PR ---
Review/Management Daily Summary 10/02 doing well she feels no deficits neuro appears normal on bedside exam ok to d/c after echo could do asa and plavix for 6 weeks statin consider prolonger heart monitor looking for occult a fib counseled on no smoking f/u office 2 weeks Subjective Subjective Comments No acute events reported No headache No chest pain No dyspnea Active Medications Current Medications Medications (Trade) Dose Ordered Sig/[place] Route Start Time Stop Time Status Last Admin (NS Flush) 2 ml BID IV FLUSH 10/01/17 09:00 10/01/17 21:22 (NS Flush) 2 ml UNSCH PRN IV FLUSH 10/01/17 09:00 (NovoLOG SUPPLEMENTAL SCALE) 1 ACHS SQ 10/01/17 12:00 (D50w (Vial) Inj) 50 ml UNSCH PRN IV PUSH 10/01/17 09:00 (Glucagon Inj) 1 mg UNSCH PRN OTHER 10/01/17 09:00 (Lipitor) 10 mg HS PO 10/01/17 21:00 10/01/17 21:23 (Ecotrin Ec) 325 mg DAILY PO 10/02/17 09:00 10/02/17 07:17 (Vasotec Inj) 1.25 mg Q6H PRN IV PUSH 10/01/17 17:30 Allergies Allergies Coded Allergies ibuprofen (Verified Allergy, Intermediate, HIVES, 10/01/17) naproxen (Verified Allergy, Unknown, HIVES, 10/01/17) Exam I&O / VS Vital Signs Date Time Temp Pulse Resp B/P (MAP) Pulse Ox O2 Delivery O2 Flow Rate FiO2 10/02/17 12:53 72 10/02/17 12:00 100 Nasal Cannula 2.00 10/02/17 11:57 98.2 66 18 140/92 (108) 100 10/02/17 09:44 68 10/02/17 07:45 98.1 75 16 133/75 (94) 97 10/02/17 04:00 98.1 68 18 150/97 (114) 100 10/02/17 00:00 98.5 71 18 141/73 (95) 99 10/01/17 20:00 97.8 67 18 138/67 (90) 99 10/01/17 17:08 58 Objective Radiology Results Last 48 hours Impressions Neck CTA 10/01/17 0740 Signed Impressions: Service Date/Time: Sunday, October 01, 2017 08:14 - CONCLUSION: No acute disease. Tenzin Wiggins MD Head CTA 10/01/17 0740 Signed Impressions: Service Date/Time: Sunday, October 01, 2017 08:14 - CONCLUSION: No acute disease. Tenzin Wiggins MD Head Magnetic Resonance Angiography 10/01/17 0000 Signed Impressions: Service Date/Time: Sunday, October 01, 2017 09:31 - CONCLUSION: No acute disease. Tenzin Wiggins MD Head CT 10/01/17 0000 Signed Impressions: Service Date/Time: Sunday, October 01, 2017 07:57 - CONCLUSION: No acute disease. Tenzin Wiggins MD Chest X-Ray 10/01/17 0000 Signed Impressions: Service Date/Time: Sunday, October 01, 2017 09:28 - CONCLUSION: No acute disease. Tenzin Wiggins MD Brain MRI 10/01/17 0000 Signed Impressions: Service Date/Time: Sunday, October 01, 2017 09:31 - CONCLUSION: 1. Small focal hyperintensities within the left high parietal cortex and to a lesser extent the right high parietal cortex on the diffusion-weighted images suggesting tiny acute infarcts. 2. No acute hemorrhage, midline shift or extra axial fluid collections. Tenzin Wiggins MD Micro and Labs Laboratory Tests Test 10/02/17 05:44 10/02/17 05:55 Triglycerides Level 150 Cholesterol Level 162 LDL Cholesterol 73 HDL Cholesterol 59.1 Cholesterol/HDL Ratio 2.74 Lenny Peguero MD Oct 02, 2017 16:10
--- NOTE | 2017-10-02 17:39 | ECHRPT ---
Indication: CVA/TIA CONCLUSIONS The left ventricular systolic function is hyperdynamic with an estimated ejection fraction in the ra nge of 65- 70%. Normal left ventricular size. Wall thickness is normal. No regional wall motion abnormalities are present. Moderate aortic valve regurgitation. The pulmonary valve is not well visualized. BP: 150 / 97 HR: 68 Rhythm: Sinus MEASUREMENTS (Male / Female) Normal Values Technical Quality:Good 2D ECHO LV Diastolic Diameter PLAX 4.1 cm 4.2 - 5.9 / 3.9 - 5.3 cm LV Systolic Diameter PLAX 2.6 cm IVS Diastolic Thickness 1.1 cm 0.6 - 1.0 / 0.6 - 0.9 cm LVPW Diastolic Thickness 1.1 cm 0.6 - 1.0 / 0.6 - 0.9 cm LV Relative Wall Thickness 0.5 RV Internal Dim ED PLAX 2.2 cm LVOT Diameter 1.5 cm LA Systolic Diameter LX 3.1 cm 3.0 - 4.0 / 2.7 - 3.8 cm M-MODE Aortic Root Diameter MM 2.1 cm LA Systolic Diameter MM 3.2 cm LA Ao Ratio MM 1.5 AV Cusp Separation MM 1.5 cm DOPPLER AV Peak Velocity 179.0 cm/s AV Peak Gradient 12.8 mmHg AI Peak Velocity 418.5 cm/s AI Peak Gradient 70.1 mmHg AI Pressure Half Time 353.0 ms LVOT Peak Velocity 135.0 cm/s LVOT Peak Gradient 7.3 mmHg AV Area Cont Eq pk 1.3 cm MV Area PHT 4.4 cm Mitral E Point Velocity 86.9 cm/s Mitral A Point Velocity 86.9 cm/s Mitral E to A Ratio 1.0 LV E' Lateral Velocity 9.9 cm/s Mitral E to LV E' Lateral Ratio 8.7 LV E' Septal Velocity 6.5 cm/s Mitral E to LV E' Septal Ratio 13.3 PV Peak Velocity 125.0 cm/s PV Peak Gradient 6.3 mmHg FINDINGS LEFT VENTRICLE The left ventricular systolic function is hyperdynamic with an estimated ejection fraction in the ra nge of 65- 70%. Normal left ventricular size. Wall thickness is normal. No regional wall motion abnormalities are present. RIGHT VENTRICLE Normal right ventricular size and systolic function. LEFT ATRIUM The left atrial size is normal. RIGHT ATRIUM The right atrial size is normal. ATRIAL SEPTUM Normal atrial septal thickness without atrial level shunting by limited color doppler interrogation. AORTA The aortic root and proximal ascending aorta are normal in size on limited imaging. MITRAL VALVE Structurally normal mitral valve. No mitral valve stenosis or regurgitation. AORTIC VALVE Trileaflet aortic valve. Moderate aortic valve regurgitation. TRICUSPID VALVE Structurally normal tricuspid valve. No tricuspid valve stenosis or regurgitation. PULMONARY VALVE The pulmonary valve is not well visualized. VESSELS The inferior vena cava is normal in size. PERICARDIUM No pericardial effusion. Alden Andrade MD, FACC (Electronically Signed) Final Date:02 October 2017 17:38
[2017-10-02] MEDS ORDERED: PLAV75TA29 PO (18:27)
[2017-10-02] MEDS ORDERED: ASPI81TA23 PO (18:27)
--- NOTE | 2017-10-03 00:35 | EKG ---
Date Performed: 10/01/2017 Time Performed: 10:54:11 PTAGE: 47 years EKG: Sinus rhythm NORMAL ECG NO PREVIOUS TRACING DOCTOR: Schuyler Pedraza Interpretating Date/Time 10/03/2017 00:20:22
--- NOTE | 2017-10-03 16:32 | HM ---
Date Performed: 10/01/2017 Time Performed: 18:05:00 HOOKUP DATE: 10/01/17 06:05:00 PM Sun ANALYSIS START TIME: 10/01/2017 6:10:00 PM ANALYSIS END TIME: 10/02/2017 3:10:26 PM PATIENT AGE: 47 PATIENT HEIGHT: 67 PATIENT WEIGHT: 145 DRUG LIST: ROOM # [id number] A PATIENT DIAGNOSIS: STROKE ALERT TEST NARRATIVE: The patient's average heart rate was 70 BPM. No episodes of tachycardia wer e noted. Heart rates less than 50 BPM were noted 2% of the time. No pauses exceeding 2.0 seconds were noted. 1 ventricular ectopics, which represented < 1% of the total beat count, were noted. The highest ventricular ectopic frequency occurred from 12:00 PM to 01:00 PM Mon. During this time 1 VE(s) occurred. Ventricular ectopics were observed as 1 isolated beat(s) only. No couplets or run s were noted. No supraventricular ectopics were noted. No episodes of ST depression (defined as -1.0 mm or more) were noted in channel 1. No episodes of ST depression (defined as -1.0 mm or mor e) were noted in channel 2. No episodes of ST depression (defined as -1.0 mm or more) were noted in channel 3. TEST INTERPRETATION: Agree with the above dictation. Signed by : Yordan Martinez
[2017-10-03 23:53] LABS: HOMOCYSTEINE 8.7 umol/L (<10.4)
[2017-10-04 16:44] LABS: CARDIOLIPIN IGG AB 19.7 GPL; CARDIOLIPIN IGM AB <9.4 MPL
[2017-10-04 17:52] LABS: FACTOR VIII(8) ACTIVITY 147 (50-180)
[2017-10-04 19:52] LABS: BETA2-GLYCOPROTEIN IGA <9 SAU (< OR = 20); BETA2-GLYCOPROTEIN IGG <9 SGU (< OR = 20); BETA2-GLYCOPROTEIN IGM <9 SMU (< OR = 20)
[2017-10-05 03:49] LABS: ACTIVATED PROTEIN C RESISTANCE 4.2 ratio (> OR = 2.1); ANTI-THROMBIN III ACT 103 (80-120)
[2017-10-05 07:51] LABS: DRVVT 1:1 MIX ND (CORRECTED); DRVVT CONFIRM ND (NEGATIVE); HEXAGONAL PHASE CONFIRM ND (NEGATIVE)
[2017-10-05 15:51] LABS: PHOSPHATIDYLSERINE AB IGA LESS THAN 20.0 U/mL (< 20.0); PHOSPHATIDYLSERINE AB IGG LESS THAN 10.0 U/mL (< 11.0); PHOSPHATIDYLSERINE AB IGM LESS THAN 25.0 U/mL (< 25.0)
[2017-10-05 22:12] LABS: PROTEIN C ACTIVITY 108 % (70 - 150); PROTEIN S ACTIVITY 77 % (50 - 160)
== END 2017-10-02 17:23 | disposition home or self-care (01) | DRG 66 ==
LOC: NEPE 07:17 → NEDA 08:56 → N05A 14:56
PROVIDERS: ADMIT Hospitalist; ATTEND Hospitalist
DX: I63.40 Cerebral infarction due to embolism of unspecified cerebral artery (principal); R47.81 Slurred speech; G83.21 Monoplegia of upper limb affecting right dominant side; R29.701 NIHSS score 1; F17.210 Nicotine dependence, cigarettes, uncomplicated; Z88.6 Allergy status to analgesic agent
CPT/HCPCS: 70450; 70496; 70498; 70544; 70551; 71045; 80048; 80061; 80076; 80307; 81001; 81240; 81241; 81291; 82550; 82948; 83036; 83090; 84484; 84702; 85025; 85240; 85300; 85303; 85306; 85307; 85384; 85610; 85613; 85730; 86146; 86147; 86148; 86850; 86900; 86901; 93005; 93225; 93226; 93306; J7030; Q9967